=== PATIENT | male | born 1935 | race Hispanic/Latino ===

== ENCOUNTER 2017-05-23 10:24 | Inpatient (IN) | payer MEDICARE ==
[2017-05-23 10:56] LABS: Basophils # (Auto) 0.1 K/mm3 (0.0-0.1); Basophils % (Auto) 0.8 % (0.0-1.8); Eosinophils # (Auto) 0.2 K/mm3 (0.0-0.4); Eosinophils % (Auto) 2.2 % (0.0-4.3); Hematocrit 45.7 % (35.5-45.6); Lymphocytes # (Auto) 2.9 K/mm3 (1.2-5.4); Lymphocytes % (Auto) 30.3 % (13.4-35.0); Mean Corpuscular HGB Conc 33 % (32-34); Mean Corpuscular Hemoglobin 30 pg (28-32); Mean Corpuscular Volume 90 fl (84-94); Monocytes % (Auto) 10.4 % (0.0-7.3); Platelet Count 215 K/mm3 (140-440); Red Blood Count 5.06 M/mm3 (3.65-5.03); Red Cell Distribution Width 14.6 % (13.2-15.2)
[2017-05-23 11:03] LABS: INR 0.95 (0.87-1.13)
--- NOTE | 2017-05-23 11:10 | XRay Report ---
PORTABLE CHEST INDICATION: Possible sepsis. COMPARISON: 06/22/2011 FINDINGS: Portable, frontal chest radiograph demonstrates normal cardiomediastinal silhouette. Aortic knob calcifications. Lungs again hyperinflated, though grossly clear. Various bony degenerative changes again noted. CONCLUSION: No acute chest process with COPD again noted. Thank you for the opportunity to participate in this patient's care.
[2017-05-23 11:34] LABS: Albumin 3.7 g/dL (3.9-5)
[2017-05-23] MEDS ORDERED: LOVENOX SUB-Q ONE (13:43)
--- NOTE | 2017-05-23 13:45 | Emergency Department Report ---
ED Extremity Problem HPI - General Chief complaint: Fever Stated complaint: FEVER/CHILLS Source: patient, family, old records reviewed Mode of arrival: Ambulatory Limitations: No Limitations - History of Present Illness Initial comments: 82-year-old male with past medical history of previous venoplasty with stent secondary to bilateral lower extremity venous insufficiency/chronic DVT, hypertension, COPD, and arthritis presents to the hospital complaints of right lower leg pain 3 days. Positive swelling and redness and warmth noted. Positive chills without documented fever. Nonproductive cough reported without chest pain or shortness of breath. History of DVT in the past. Patient has not followed up with vascular and greater than 2 years. He does not currently take any antiplatelet or anticoagulant medication. Previous medical record reviewed in January 2015 patient had a venoplasty with stent placement for superficial femoral vein occlusion secondary to chronic DVT (preformed by Dr Mccain - Related Data Home Medications Medication Instructions Recorded Confirmed Last Taken Lisinopril/Hydrochlorothiazide 1 tab PO DAILY 01/27/15 05/23/17 05/23/17 [Zestoretic 20-12.5 mg] Metoprolol [Lopressor] 100 mg PO DAILY 01/27/15 05/23/17 05/23/17 Allergies Allergy/AdvReac Type Severity Reaction Status Date / Time No Known Allergies Allergy Verified 01/27/15 06:42 ED Review of Systems ROS: Stated complaint: FEVER/CHILLS Other details as noted in HPI Comment: All other systems reviewed and negative ED Past Medical Hx - Past Medical History Previous Medical History?: Yes Hx Hypertension: Yes Hx Deep Vein Thrombosis: Yes Hx Arthritis: Yes (general) Hx COPD: Yes - Surgical History Past Surgical History?: Yes Hx Cholecystectomy: Yes Additional Surgical History: LEFT KNEE REPLACEMENT. BACK SURGERY. blocked colon - Social History Smoking Status: Current Every Day Smoker Substance Use Type: None - Medications Home Medications: Home Medications Medication Instructions Recorded Confirmed Last Taken Type Lisinopril/Hydrochlorothiazide 1 tab PO DAILY 01/27/15 05/23/17 05/23/17 History [Zestoretic 20-12.5 mg] Metoprolol [Lopressor] 100 mg PO DAILY 01/27/15 05/23/17 05/23/17 History ED Physical Exam - General Limitations: No Limitations - Other Other exam information: General: No limitations, patient is alert in no acute distress Head exam: Atraumatic, normocephalic Eyes exam: Normal appearance ENT: Moist mucous membrane, normal oropharynx Neck exam: Normal inspection, full range of motion, no meningismus nontender Respiratory exam: Clear to auscultation bilateral, no wheezes, rales, crackles Cardiovascular: Normal rate and rhythm, normal heart sounds Abdomen: Soft, nondistended, and nontender, with normal bowel sounds, no rebound, or guarding Extremity: Full range of motion, right lower leg swelling, edema, mild redness and warmth. Unable to palpate or Doppler either DP pulse. Able to Doppler popiteal and PT pulses Back: Normal Inspection, full range of motion, no tenderness Neurologic: Alert, oriented x3, cranial nerves intact, no motor or sensory deficit Psychiatric: normal affect, normal mood Skin: Warm, dry, intact ED Course Vital Signs 05/23/17 10:30 Temperature 97.6 F Pulse Rate 61 Respiratory 16 Rate Blood Pressure 123/82 O2 Sat by Pulse 98 Oximetry - Reevaluation(s) Reevaluation #1: 05/23/17 15:42 pt declined pain meds during ed stay - Consultations Consultation #1: 05/23/17 13:42 Case discussed with Moe with a vascular. Will consult ED Medical Decision Making - Lab Data Result diagrams: 05/23/17 10:39 05/23/17 10:39 Lab Results 05/23/17 05/23/17 05/23/17 Range/Units 10:39 10:39 10:39 WBC 9.7 (4.5-11.0) K/mm3 RBC 5.06 H (3.65-5.03) M/mm3 Hgb 15.0 (11.8-15.2) gm/dl Hct 45.7 H (35.5-45.6) % MCV 90 (84-94) fl MCH 30 (28-32) pg MCHC 33 (32-34) % RDW 14.6 (13.2-15.2) % Plt Count 215 (140-440) K/mm3 Lymph % (Auto) 30.3 (13.4-35.0) % [place] % (Auto) 10.4 H (0.0-7.3) % Eos % (Auto) 2.2 (0.0-4.3) % Baso % (Auto) 0.8 (0.0-1.8) % Lymph # 2.9 (1.2-5.4) K/mm3 [place] # 1.0 H (0.0-0.8) K/mm3 Eos # 0.2 (0.0-0.4) K/mm3 Baso # 0.1 (0.0-0.1) K/mm3 Seg Neutrophils % 56.3 (40.0-70.0) % Seg Neutrophils # 5.5 (1.8-7.7) K/mm3 PT 13.1 (12.2-14.9) Sec. INR 0.95 (0.87-1.13) APTT (24.2-36.6) Sec. VBG pH (7.320-7.420) Sodium 138 (137-145) mmol/L Potassium 4.4 (3.6-5.0) mmol/L Chloride 100.0 (98-107) mmol/L Carbon Dioxide 27 (22-30) mmol/L Anion Gap 15 mmol/L BUN 32 H (9-20) mg/dL Creatinine 1.2 (0.8-1.5) mg/dL Estimated GFR 58 ml/min BUN/Creatinine Ratio 27 % Glucose 106 H (75-100) mg/dL Lactic Acid (0.7-2.0) mmol/L Calcium 9.0 (8.4-10.2) mg/dL Total Bilirubin 0.60 (0.1-1.2) mg/dL AST 17 (5-40) units/L ALT 10 (7-56) units/L Alkaline Phosphatase 92 (35-129) units/L Total Protein 7.1 (6.3-8.2) g/dL Albumin 3.7 L (3.9-5) g/dL Albumin/Globulin Ratio 1.1 % Urine Color (Yellow) Urine Turbidity (Clear) Urine pH (5.0-7.0) Ur Specific [place] (1.003-1.030) Urine Protein (Negative) mg/dL Urine Glucose (UA) (Negative) mg/dL Urine Ketones (Negative) mg/dL Urine Blood (Negative) Urine Nitrite (Negative) Urine Bilirubin (Negative) Urine Urobilinogen (<2.0) mg/dL Ur Leukocyte Esterase (Negative) Urine WBC (Auto) (0.0-6.0) /HPF Urine RBC (Auto) (0.0-6.0) /HPF Urine Mucus /HPF 05/23/17 05/23/17 05/23/17 Range/Units 10:39 10:39 13:12 WBC (4.5-11.0) K/mm3 RBC (3.65-5.03) M/mm3 Hgb (11.8-15.2) gm/dl Hct (35.5-45.6) % MCV (84-94) fl MCH (28-32) pg MCHC (32-34) % RDW (13.2-15.2) % Plt Count (140-440) K/mm3 Lymph % (Auto) (13.4-35.0) % [place] % (Auto) (0.0-7.3) % Eos % (Auto) (0.0-4.3) % Baso % (Auto) (0.0-1.8) % Lymph # (1.2-5.4) K/mm3 [place] # (0.0-0.8) K/mm3 Eos # (0.0-0.4) K/mm3 Baso # (0.0-0.1) K/mm3 Seg Neutrophils % (40.0-70.0) % Seg Neutrophils # (1.8-7.7) K/mm3 PT (12.2-14.9) Sec. INR (0.87-1.13) APTT (24.2-36.6) Sec. VBG pH 7.320 (7.320-7.420) Sodium (137-145) mmol/L Potassium (3.6-5.0) mmol/L Chloride (98-107) mmol/L Carbon Dioxide (22-30) mmol/L Anion Gap mmol/L BUN (9-20) mg/dL Creatinine (0.8-1.5) mg/dL Estimated GFR ml/min BUN/Creatinine Ratio % Glucose (75-100) mg/dL Lactic Acid 1.50 1.30 (0.7-2.0) mmol/L Calcium (8.4-10.2) mg/dL Total Bilirubin (0.1-1.2) mg/dL AST (5-40) units/L ALT (7-56) units/L Alkaline Phosphatase (35-129) units/L Total Protein (6.3-8.2) g/dL Albumin (3.9-5) g/dL Albumin/Globulin Ratio % Urine Color (Yellow) Urine Turbidity (Clear) Urine pH (5.0-7.0) Ur Specific [place] (1.003-1.030) Urine Protein (Negative) mg/dL Urine Glucose (UA) (Negative) mg/dL Urine Ketones (Negative) mg/dL Urine Blood (Negative) Urine Nitrite (Negative) Urine Bilirubin (Negative) Urine Urobilinogen (<2.0) mg/dL Ur Leukocyte Esterase (Negative) Urine WBC (Auto) (0.0-6.0) /HPF Urine RBC (Auto) (0.0-6.0) /HPF Urine Mucus /HPF 05/23/17 05/23/17 Range/Units 13:49 14:00 WBC (4.5-11.0) K/mm3 RBC (3.65-5.03) M/mm3 Hgb (11.8-15.2) gm/dl Hct (35.5-45.6) % MCV (84-94) fl MCH (28-32) pg MCHC (32-34) % RDW (13.2-15.2) % Plt Count (140-440) K/mm3 Lymph % (Auto) (13.4-35.0) % [place] % (Auto) (0.0-7.3) % Eos % (Auto) (0.0-4.3) % Baso % (Auto) (0.0-1.8) % Lymph # (1.2-5.4) K/mm3 [place] # (0.0-0.8) K/mm3 Eos # (0.0-0.4) K/mm3 Baso # (0.0-0.1) K/mm3 Seg Neutrophils % (40.0-70.0) % Seg Neutrophils # (1.8-7.7) K/mm3 PT 13.7 (12.2-14.9) Sec. INR 1.00 (0.87-1.13) APTT 27.6 (24.2-36.6) Sec. VBG pH (7.320-7.420) Sodium (137-145) mmol/L Potassium (3.6-5.0) mmol/L Chloride (98-107) mmol/L Carbon Dioxide (22-30) mmol/L Anion Gap mmol/L BUN (9-20) mg/dL Creatinine (0.8-1.5) mg/dL Estimated GFR ml/min BUN/Creatinine Ratio % Glucose (75-100) mg/dL Lactic Acid (0.7-2.0) mmol/L Calcium (8.4-10.2) mg/dL Total Bilirubin (0.1-1.2) mg/dL AST (5-40) units/L ALT (7-56) units/L Alkaline Phosphatase (35-129) units/L Total Protein (6.3-8.2) g/dL Albumin (3.9-5) g/dL Albumin/Globulin Ratio % Urine Color Yellow (Yellow) Urine Turbidity Clear (Clear) Urine pH 5.0 (5.0-7.0) Ur Specific [place] 1.019 (1.003-1.030) Urine Protein <15 mg/dl (Negative) mg/dL Urine Glucose (UA) Neg (Negative) mg/dL Urine Ketones Neg (Negative) mg/dL Urine Blood Neg (Negative) Urine Nitrite Neg (Negative) Urine Bilirubin Neg (Negative) Urine Urobilinogen < 2.0 (<2.0) mg/dL Ur Leukocyte Esterase Neg (Negative) Urine WBC (Auto) < 1.0 (0.0-6.0) /HPF Urine RBC (Auto) < 1.0 (0.0-6.0) /HPF Urine Mucus Few /HPF - Radiology Data Radiology results: report reviewed VASCULAR LAB.PRELIMINARY REPORT. RLE VENOUS DUPLEX DONE. EVIDENCE OF ACUTE DVT IN THE RT.POPLITEAL VEIN EXTENDING ALL THE WAY DOWN TO THE RT.DS PTV. SVT NOTED IN THE RT.GSV FROM PX TO DS CALF. - Medical Decision Making Acute DVT/right leg pain and swelling Unable to palpate or Doppler DP pulses Positive significant acute DVT to the right lower extremity Lovenox initiated Vascular consulted - Differential Diagnosis DVT, cellulitis, PAD, venous insufficiency Critical Care Time: No Critical care attestation.: If time is entered above; I have spent that time in minutes in the direct care of this critically ill patient, excluding procedure time. ED Disposition Clinical Impression: Acute deep vein thrombosis (DVT) of right lower extremity, HTN (hypertension), Venous insufficiency of both lower extremities Disposition: DC-09 OP ADMIT IP TO THIS HOSP Is pt being admited?: Yes Condition: Stable Time of Disposition: 14:18 (Dr valenzuela/hosp)
[2017-05-23 14:12] LABS: Partial Thromboplastin Time 27.6 Sec. (24.2-36.6)
[2017-05-23 15:14] LABS: Bilirubin,Urine NEG (Negative); Blood,Urine NEG (Negative); Color,Urine Yellow (Yellow); Mucus,Urine FEW /HPF; Protein,Urine <15 mg/dL mg/dL (Negative); Urobilinogen,Urine < 2.0 mg/dL (<2.0); WBC,Urine < 1.0 /HPF (0.0-6.0)
[2017-05-23 15:16] LABS: RBC,Urine < 1.0 /HPF (0.0-6.0)
--- NOTE | 2017-05-23 16:50 | Consultation ---
History of Present Illness - Reason for Consult Consult date: 05/23/17 Requesting physician: JOHN HOPKINS - History of Present Illness This pt is an 82 yo WM that has been admitted via the [facility] ER due to an acute DVT to the right pop vein extending into the calf veins (based upon a prelimbinary venous duplex). He reports new onset of pain and swelling of the right lower ext beginning 3-4 days ago. This did not improve and therefore he was taken to the ER for further work up. He also reports episodes of fever and chills starting last week (Friday) and again last night. The pt is known to our service s/p previous bilateral venogram, angioplasty/ SFV stent placement in Jan. He has failed to follow since early 2015. He stayed on oral anticoagulation for ~6months and stopped without medical advise. This was due to cost. Past History Past Medical History: arthritis, COPD, DVT (multiple thrombotic events), hypertension, other (Diverticulitis) Past Surgical History: cholecystectomy, Other (knee and back surgeries, the above stated SFV angioplasty with self expanding stent placement) Social history: , lives with family, smoking. denies: alcohol abuse Family history: cancer, diabetes Medications and Allergies Allergies Allergy/AdvReac Type Severity Reaction Status Date / Time No Known Allergies Allergy Verified 01/27/15 06:42 Home Medications Medication Instructions Recorded Confirmed Last Taken Type Lisinopril/Hydrochlorothiazide 1 tab PO DAILY 01/27/15 05/23/17 05/23/17 History [Zestoretic 20-12.5 mg] Metoprolol [Lopressor] 100 mg PO DAILY 01/27/15 05/23/17 05/23/17 History Review of Systems All systems: negative Exam - Constitutional Vitals: Temp Pulse Resp BP Pulse Ox 97.6 F 67 10 L 148/67 99 05/23/17 10:30 05/23/17 16:16 05/23/17 16:16 05/23/17 16:16 05/23/17 16:16 General appearance: Present: no acute distress - EENT Eyes: Present: EOM intact ENT: hearing intact - Neck Neck: Present: supple - Respiratory Respiratory effort: normal - Extremities Extremities: no ischemia, normal temperature Extremity abnormal: edema (right lower ext swelling with mild erythema and a palp cord along the GSV. This is quite tender to palpation.) - Psychiatric Psychiatric: appropriate mood/affect, intact judgment & insight, cooperative - Neurologic Neurologic: no focal deficits Results - Labs CBC & Chem 7: 05/23/17 10:39 05/23/17 10:39 Labs: Abnormal lab results 05/23/17 05/23/17 Range/Units 10:39 10:39 RBC 5.06 H (3.65-5.03) M/mm3 Hct 45.7 H (35.5-45.6) % [place] % (Auto) 10.4 H (0.0-7.3) % [place] # 1.0 H (0.0-0.8) K/mm3 BUN 32 H (9-20) mg/dL Glucose 106 H (75-100) mg/dL Albumin 3.7 L (3.9-5) g/dL Assessment and Plan This pt has a h/o previous bilateral lower ext DVT with venous insufficiency with venous angioplasty and stent placement. He has failed to follow up with our office since early 2015. He quit taking his oral anticoagulation without medical advise after 6 months. He presents now with new complaints of pain and swelling. U/s shows GSV thrombus which is likely responsible for his pain. It's difficult to tell if the chronicity of the deep vein thrombus, suspect this is chronic from history and review of u/s images. Recommend resumption of oral anticoagulation (Eliquis 5mg po bid). He should be evaluated for the Eliquis assistance program to potentially help with the cost. We also discussed the importance of lower ext elevation, compression, and warm (not hot) compresses (for discomfort). Fvr/Chills w/u in progress. Pt will f/u in our office next week. - Patient Problems (1) Recurrent deep vein thrombosis (DVT) Current Visit: Yes Status: Acute (2) Venous insufficiency of both lower extremities Current Visit: Yes Status: Chronic (3) Medical non-compliance Current Visit: Yes Status: Acute (4) Fever chills Current Visit: Yes Status: Acute
--- NOTE | 2017-05-23 19:21 | History and Physical Report ---
History of Present Illness Date of examination: 05/23/17 Date of admission: 05/23/17 14:52 Chief complaint: See dictated H/p in reports History of present illness: See dictated H/p in reports Past History Past Medical History: arthritis, COPD, DVT (multiple thrombotic events), hypertension, other (Diverticulitis) Past Surgical History: cholecystectomy, Other (knee and back surgeries, the above stated SFV angioplasty with self expanding stent placement) Social history: , lives with family, smoking. denies: alcohol abuse Family history: cancer, diabetes Medications and Allergies Allergies Allergy/AdvReac Type Severity Reaction Status Date / Time No Known Allergies Allergy Verified 01/27/15 06:42 Home Medications Medication Instructions Recorded Confirmed Last Taken Type Lisinopril/Hydrochlorothiazide 1 tab PO DAILY 01/27/15 05/23/17 05/23/17 History [Zestoretic 20-12.5 mg] Metoprolol [Lopressor] 100 mg PO DAILY 01/27/15 05/23/17 05/23/17 History Oxycodone-Acetaminophn 5-325/5 7.5 mg PO Q8H 05/23/17 05/23/17 05/23/17 08:30 History Active Meds: Active Medications Apixaban (Eliquis) 5 mg PO Q12HR LYN; Protocol Exam - Constitutional Vitals: Temp Pulse Resp BP Pulse Ox 97.8 F 65 20 143/88 97 05/23/17 18:18 05/23/17 18:18 05/23/17 18:18 05/23/17 18:18 05/23/17 18:18 Results - Labs CBC & Chem 7: 05/24/17 05:39 05/24/17 05:39 Labs: Laboratory Last Values WBC 9.7 K/mm3 (4.5-11.0) 05/23/17 10:39 RBC 5.06 M/mm3 (3.65-5.03) H 05/23/17 10:39 Hgb 15.0 gm/dl (11.8-15.2) 05/23/17 10:39 Hct 45.7 % (35.5-45.6) H 05/23/17 10:39 MCV 90 fl (84-94) 05/23/17 10:39 MCH 30 pg (28-32) 05/23/17 10:39 MCHC 33 % (32-34) 05/23/17 10:39 RDW 14.6 % (13.2-15.2) 05/23/17 10:39 Plt Count 215 K/mm3 (140-440) 05/23/17 10:39 Lymph % (Auto) 30.3 % (13.4-35.0) 05/23/17 10:39 [place] % (Auto) 10.4 % (0.0-7.3) H 05/23/17 10:39 Eos % (Auto) 2.2 % (0.0-4.3) 05/23/17 10:39 Baso % (Auto) 0.8 % (0.0-1.8) 05/23/17 10:39 Lymph # 2.9 K/mm3 (1.2-5.4) 05/23/17 10:39 [place] # 1.0 K/mm3 (0.0-0.8) H 05/23/17 10:39 Eos # 0.2 K/mm3 (0.0-0.4) 05/23/17 10:39 Baso # 0.1 K/mm3 (0.0-0.1) 05/23/17 10:39 Seg Neutrophils % 56.3 % (40.0-70.0) 05/23/17 10:39 Seg Neutrophils # 5.5 K/mm3 (1.8-7.7) 05/23/17 10:39 PT 13.7 Sec. (12.2-14.9) 05/23/17 13:49 INR 1.00 (0.87-1.13) 05/23/17 13:49 APTT 27.6 Sec. (24.2-36.6) 05/23/17 13:49 VBG pH 7.320 (7.320-7.420) 05/23/17 10:39 Sodium 138 mmol/L (137-145) 05/23/17 10:39 Potassium 4.4 mmol/L (3.6-5.0) 05/23/17 10:39 Chloride 100.0 mmol/L (98-107) 05/23/17 10:39 Carbon Dioxide 27 mmol/L (22-30) 05/23/17 10:39 Anion Gap 15 mmol/L 05/23/17 10:39 BUN 32 mg/dL (9-20) H 05/23/17 10:39 Creatinine 1.2 mg/dL (0.8-1.5) 05/23/17 10:39 Estimated GFR 58 ml/min 05/23/17 10:39 BUN/Creatinine Ratio 27 % 05/23/17 10:39 Glucose 106 mg/dL (75-100) H 05/23/17 10:39 Lactic Acid 1.30 mmol/L (0.7-2.0) 05/23/17 13:12 Calcium 9.0 mg/dL (8.4-10.2) 05/23/17 10:39 Total Bilirubin 0.60 mg/dL (0.1-1.2) 05/23/17 10:39 AST 17 units/L (5-40) 05/23/17 10:39 ALT 10 units/L (7-56) 05/23/17 10:39 Alkaline Phosphatase 92 units/L (35-129) 05/23/17 10:39 Total Protein 7.1 g/dL (6.3-8.2) 05/23/17 10:39 Albumin 3.7 g/dL (3.9-5) L 05/23/17 10:39 Albumin/Globulin Ratio 1.1 % 05/23/17 10:39 Urine Color Yellow (Yellow) 05/23/17 14:00 Urine Turbidity Clear (Clear) 05/23/17 14:00 Urine pH 5.0 (5.0-7.0) 05/23/17 14:00 Ur Specific [place] 1.019 (1.003-1.030) 05/23/17 14:00 Urine Protein <15 mg/dl mg/dL (Negative) 05/23/17 14:00 Urine Glucose (UA) Neg mg/dL (Negative) 05/23/17 14:00 Urine Ketones Neg mg/dL (Negative) 05/23/17 14:00 Urine Blood Neg (Negative) 05/23/17 14:00 Urine Nitrite Neg (Negative) 05/23/17 14:00 Urine Bilirubin Neg (Negative) 05/23/17 14:00 Urine Urobilinogen < 2.0 mg/dL (<2.0) 05/23/17 14:00 Ur Leukocyte Esterase Neg (Negative) 05/23/17 14:00 Urine WBC (Auto) < 1.0 /HPF (0.0-6.0) 05/23/17 14:00 Urine RBC (Auto) < 1.0 /HPF (0.0-6.0) 05/23/17 14:00 Urine Mucus Few /HPF 05/23/17 14:00
[2017-05-23] MEDS ORDERED: SODIUM CHLORIDE FLUSH SYRINGE 10 ML IV PRN (19:23)
[2017-05-23] MEDS ORDERED: TYLENOL PO PRN (19:23)
[2017-05-23] MEDS ORDERED: ZOFRAN IV PRN (19:23)
[2017-05-23] MEDS ORDERED: DILAUDID IV PRN (19:24)
[2017-05-23] MEDS ORDERED: AMBIEN PO PRN (19:24)
[2017-05-23] MEDS ORDERED: MORPHINE IV PRN (19:24)
[2017-05-23] MEDS ORDERED: PERCOCET 5/325 PO PRN (19:26)
[2017-05-23] MEDS ORDERED: ACETAMINOPHEN PO SCH (19:30)
[2017-05-23] MEDS ORDERED: NON-FORMULARY (Lisinopril/Hydrochlorothiazide [Zestoretic 20-12.5 Mg] 1 TAB) PO SCH (19:30)
[2017-05-23] MEDS ORDERED: OXYCODONE PO SCH (19:30)
[2017-05-23] MEDS ORDERED: NACL 0.9% 1000 ML 1,000 ML IV SCH (20:00)
[2017-05-23] MEDS ORDERED: LOVENOX SUB-Q SCH ×2 (20:00→22:00)
[2017-05-23] MEDS: SODIUM CHLORIDE FLUSH SYRINGE 10 ML IV SCH (22:00)
[2017-05-24] MEDS: PEPCID PO SCH ×3 (00:39→23:25)
[2017-05-24 06:01] LABS: Basophils # (Auto) 0.1 K/mm3 (0.0-0.1); Basophils % (Auto) 0.6 % (0.0-1.8); Eosinophils # (Auto) 0.3 K/mm3 (0.0-0.4); Eosinophils % (Auto) 2.5 % (0.0-4.3); Hematocrit 43.6 % (35.5-45.6); Hemoglobin 14.3 gm/dl (11.8-15.2); Lymphocytes # (Auto) 4.3 K/mm3 (1.2-5.4); Lymphocytes % (Auto) 41.8 % (13.4-35.0); Mean Corpuscular HGB Conc 33 % (32-34); Mean Corpuscular Hemoglobin 30 pg (28-32); Mean Corpuscular Volume 91 fl (84-94); Monocytes % (Auto) 9.7 % (0.0-7.3); Platelet Count 206 K/mm3 (140-440); Red Cell Distribution Width 14.5 % (13.2-15.2)
[2017-05-24 06:31] LABS: Alanine Aminotransferase 11 units/L (7-56); Albumin 3.3 g/dL (3.9-5); BUN/Creatinine Ratio 28; Blood Urea Nitrogen 25 mg/dL (9-20); Calcium 8.8 mg/dL (8.4-10.2); Hemolysis Index 11
--- NOTE | 2017-05-24 08:42 | History and Physical Report ---
CHIEF COMPLAINT: Right lower extremity swelling. HISTORY OF PRESENT ILLNESS: An 82-year-old male with a history of recurrent DVT comes in for right lower extremity swelling. New onset of pain to the right lower extremity of 3 to 4 days, which did not improve. Venous duplex scan shows right popliteal vein thrombus extending into the calf veins. The patient had a bilateral venogram and angioplasty of ____, superficial femoral vein stent placement in 01/2015 and did not stay on oral anticoagulation for 6 months and stopped without medical advice. No shortness of breath. PAST MEDICAL HISTORY: As mentioned, significant for COPD, DVT, multiple thrombotic events, hypertension, diverticulitis, and arthritis. PAST SURGICAL HISTORY: Cholecystectomy, knee and back surgeries. SFV angioplasty with self-expanding stent placement. SOCIAL HISTORY: , lives with family. Smokes over a pack a day. No alcohol abuse. FAMILY HISTORY: Cancer and diabetes. CURRENT MEDICATIONS: Lisinopril and metoprolol. REVIEW OF SYSTEMS: Other than the right lower extremity pain, review of systems essentially negative. A 14-point review of systems done. PHYSICAL EXAMINATION: GENERAL: Elderly male, lying in bed, comfortable. VITAL SIGNS: Blood pressure is 123/84, temperature is 97.9, pulse is 67, and respirations are 14. HEENT: Unremarkable. Pupils are equal and reactive. NECK: Supple, no lymphadenopathy, no thyromegaly. LUNGS: Clear to auscultation and percussion. Good air entry. CARDIOVASCULAR: S1, S2 heard. No gallop, no murmur, no rub. Apical impulse in left fifth intercostal space and midclavicular line. ABDOMEN: Soft and benign. No hepatosplenomegaly. No guarding, no rigidity. Hernial orifices are normal. EXTREMITIES: Right lower extremity swollen, tender on the calf region. Homans sign present. CENTRAL NERVOUS SYSTEM: Alert and oriented x 4, nonfocal exam. LABORATORY DATA: CBC: White count is 9700, hemoglobin is 15.0, hematocrit is 45.7. Sodium is 138, potassium is 4.4, bicarbonate is 27, BUN and creatinine are 32 and 1.2, and glucose is 106. Albumin is 3.7, slightly low. Urine, no white cells. DIAGNOSTIC DATA: Duplex scan, right popliteal vein deep vein thrombosis present. ASSESSMENT AND PLAN: 1. Acute deep venous thrombosis. The patient is initiated on Lovenox. Vascular Surgery consult requested. Vascular surgery initiated Eliquis 5 mg twice a day. Vascular surgery to follow up on the patient. Venous insufficiency of both lower extremities as per Vascular Surgery. 2. Hypertension. Continue antihypertensives. 3. Nicotine dependence, Nicoderm patch initiated. 4. Deep venous thrombosis prophylaxis. The patient is already on Lovenox for the DVT. In summary, the patient to be continued on Lovenox, started on Eliquis and discharge planning depending on the Vascular Surgery input. JOB# [id number] THOMAS/GUS
[2017-05-24] MEDS: HABITROL TD SCH (11:30)
[2017-05-24] MEDS: SODIUM CHLORIDE FLUSH SYRINGE 10 ML IV SCH ×2 (11:30→23:32)
[2017-05-24] MEDS: ELIQUIS PO SCH ×2 (11:31→23:26)
[2017-05-24] MEDS: LOPRESSOR PO SCH (11:31)
[2017-05-24] MEDS: ZESTRIL PO SCH (11:31)
[2017-05-24] MEDS: HCTZ PO SCH (11:31)
--- NOTE | 2017-05-24 14:40 | Progress Note ---
Assessment and Plan Assessment and plan: --Acute right lower extremity DVT; On Lovenox, changed to Eliquis, Vascular evaluated the patient --Hypertension; moderate control, continue current antihypertensives And when necessary medications --mild protein calorie malnutrition/nutrition supplements and supportive care --Full CODE STATUS Closely monitor the patient and adjust management as needed Possible discharge home on Eliquis tomorrow if stable Plan of care reviewed with the patient his and the nurse History Interval history: Patient seen and examined medical records reviewed Admitted with right lower extremity DVT, on Lovenox Evaluation by vascular. CT chest negative for PE Patient feels slightly better Denies chest pain or shortness of breath Alert awake oriented 3 not in acute distress Vital signs reviewed Hospitalist Physical - Constitutional Vitals: Temp Pulse Resp BP Pulse Ox 98.5 F 67 20 137/72 98 05/24/17 08:03 05/24/17 11:31 05/24/17 08:03 05/24/17 11:31 05/24/17 08:03 General appearance: Present: no acute distress, well-nourished - EENT Eyes: Present: PERRL, EOM intact - Neck Neck: Present: supple, normal ROM - Respiratory Respiratory effort: normal Respiratory: bilateral: diminished, negative: rales, rhonchi, wheezing - Cardiovascular Rhythm: regular Heart Sounds: Present: S1 & S2 - Extremities Extremities: no ischemia, No edema - Abdominal General gastrointestinal: soft, non-tender, non-distended, normal bowel sounds - Integumentary Integumentary: Present: clear, warm - Psychiatric Psychiatric: appropriate mood/affect, cooperative - Neurologic Neurologic: CNII-XII intact, moves all extremities Results - Labs CBC & Chem 7: 05/24/17 05:39 05/24/17 05:39 Labs: Laboratory Last Values WBC 10.2 K/mm3 (4.5-11.0) 05/24/17 05:39 RBC 4.80 M/mm3 (3.65-5.03) 05/24/17 05:39 Hgb 14.3 gm/dl (11.8-15.2) 05/24/17 05:39 Hct 43.6 % (35.5-45.6) 05/24/17 05:39 MCV 91 fl (84-94) 05/24/17 05:39 MCH 30 pg (28-32) 05/24/17 05:39 MCHC 33 % (32-34) 05/24/17 05:39 RDW 14.5 % (13.2-15.2) 05/24/17 05:39 Plt Count 206 K/mm3 (140-440) 05/24/17 05:39 Lymph % (Auto) 41.8 % (13.4-35.0) H 05/24/17 05:39 Kern % (Auto) 9.7 % (0.0-7.3) H 05/24/17 05:39 Eos % (Auto) 2.5 % (0.0-4.3) 05/24/17 05:39 Baso % (Auto) 0.6 % (0.0-1.8) 05/24/17 05:39 Lymph # 4.3 K/mm3 (1.2-5.4) 05/24/17 05:39 Kern # 1.0 K/mm3 (0.0-0.8) H 05/24/17 05:39 Eos # 0.3 K/mm3 (0.0-0.4) 05/24/17 05:39 Baso # 0.1 K/mm3 (0.0-0.1) 05/24/17 05:39 Seg Neutrophils % 45.4 % (40.0-70.0) 05/24/17 05:39 Seg Neutrophils # 4.6 K/mm3 (1.8-7.7) 05/24/17 05:39 PT 13.7 Sec. (12.2-14.9) 05/23/17 13:49 INR 1.00 (0.87-1.13) 05/23/17 13:49 APTT 27.6 Sec. (24.2-36.6) 05/23/17 13:49 VBG pH 7.320 (7.320-7.420) 05/23/17 10:39 Sodium 139 mmol/L (137-145) 05/24/17 05:39 Potassium 4.6 mmol/L (3.6-5.0) 05/24/17 05:39 Chloride 99.9 mmol/L (98-107) 05/24/17 05:39 Carbon Dioxide 27 mmol/L (22-30) 05/24/17 05:39 Anion Gap 17 mmol/L 05/24/17 05:39 BUN 25 mg/dL (9-20) H 05/24/17 05:39 Creatinine 0.9 mg/dL (0.8-1.5) 05/24/17 05:39 Estimated GFR > 60 ml/min 05/24/17 05:39 BUN/Creatinine Ratio 28 % 05/24/17 05:39 Glucose 89 mg/dL (75-100) 05/24/17 05:39 Hemoglobin A1c 5.8 % (4-6) 05/23/17 20:16 Lactic Acid 1.30 mmol/L (0.7-2.0) 05/23/17 13:12 Calcium 8.8 mg/dL (8.4-10.2) 05/24/17 05:39 Total Bilirubin 0.60 mg/dL (0.1-1.2) 05/24/17 05:39 AST 15 units/L (5-40) 05/24/17 05:39 ALT 11 units/L (7-56) 05/24/17 05:39 Alkaline Phosphatase 99 units/L (35-129) 05/24/17 05:39 Total Protein 6.4 g/dL (6.3-8.2) 05/24/17 05:39 Albumin 3.3 g/dL (3.9-5) L 05/24/17 05:39 Albumin/Globulin Ratio 1.1 % 05/24/17 05:39 Urine Color Yellow (Yellow) 05/23/17 14:00 Urine Turbidity Clear (Clear) 05/23/17 14:00 Urine pH 5.0 (5.0-7.0) 05/23/17 14:00 Ur Specific Mosby 1.019 (1.003-1.030) 05/23/17 14:00 Urine Protein <15 mg/dl mg/dL (Negative) 05/23/17 14:00 Urine Glucose (UA) Neg mg/dL (Negative) 05/23/17 14:00 Urine Ketones Neg mg/dL (Negative) 05/23/17 14:00 Urine Blood Neg (Negative) 05/23/17 14:00 Urine Nitrite Neg (Negative) 05/23/17 14:00 Urine Bilirubin Neg (Negative) 05/23/17 14:00 Urine Urobilinogen < 2.0 mg/dL (<2.0) 05/23/17 14:00 Ur Leukocyte Esterase Neg (Negative) 05/23/17 14:00 Urine WBC (Auto) < 1.0 /HPF (0.0-6.0) 05/23/17 14:00 Urine RBC (Auto) < 1.0 /HPF (0.0-6.0) 05/23/17 14:00 Urine Mucus Few /HPF 05/23/17 14:00
[2017-05-25] MEDS: SODIUM CHLORIDE FLUSH SYRINGE 10 ML IV SCH (10:16)
[2017-05-25] MEDS: HABITROL TD SCH (10:16)
[2017-05-25] MEDS: ELIQUIS PO SCH (10:18)
[2017-05-25] MEDS: PEPCID PO SCH (10:18)
[2017-05-25] MEDS: LOPRESSOR PO SCH (10:20)
[2017-05-25] MEDS: HCTZ PO SCH (10:20)
[2017-05-25] MEDS: ZESTRIL PO SCH (10:21)
[2017-05-25 10:22] VITALS: BP 93/51
--- NOTE | 2017-05-25 12:07 | Discharge Summary ---
Providers - Providers Date of Admission: 05/23/17 14:52 Date of discharge: 05/25/17 Attending physician: ERIK VACA 05/23/17 13:42 Consult to Physician [CONS] Urgent Comment: Consulting Provider: MARTHA BANERJEE Physician Instructions: Reason For Exam: right leg dvt 05/23/17 19:24 Consult to Physician [CONS] Routine Comment: Consulting Provider: JCARLOS GUPTA Physician Instructions: Reason For Exam: DVT Primary care physician: [employer] Hospitalization Reason for admission: right lower extremity swelling/acute DVT Condition: Stable Pertinent studies: Chest x-ray; no acute abnormality noted. COPD Lower extremity venous Doppler; evidence of acute DVT in the right popliteal vein Hospital course: Very pleasant 82-year-old male patient with significant past medical history of hypertension, recurrent DVTs, venous insufficiency both lower extremities and medical noncompliance was admitted through emergency room with acute right popliteal DVT extending to the cough pains on venous Doppler The patient was evaluated by vascular surgeon Dr. Parry, advised Eliquis 5 mg by mouth twice a day. Patient was symptomatically managed, Today's comfortably in bed no new complaints Vital signs are stable Ambulatory and tolerating oral nutrition Physical exam patch of discharge is unremarkable Patient counseled on importance of adhering to the treatment plan Verbalized understanding Discharge diagnosis; --Acute right lower extremity DVT; --Hypertension; moderate control, --mild protein calorie malnutrition - Disposition: DC-01 TO HOME OR SELFCARE Time spent for discharge: 31 min Core Measure Documentation - Palliative Care Palliative Care/ Comfort Measures: Not Applicable - Core Measures Any of the following diagnoses?: DVT/PE - VTE Discharge Requirements Deep Vein Thrombosis/Pulmonary Embolism Present on Admission: Yes Has pt received <5 days of overlap therapy or INR<2.0: Yes (patient on Eliquis) Anticoagulant overlap therapy prescribed at discharge: No Contraindication No Overlap Therapy order at DC: Not Indicated (recent on Eliquis) Exam - Constitutional Vitals: Temp Pulse Resp BP Pulse Ox 98.8 F 98 H 18 93/51 98 05/25/17 08:00 05/25/17 10:21 05/25/17 08:00 05/25/17 10:21 05/25/17 08:00 General appearance: Present: no acute distress, well-nourished - EENT Eyes: Present: PERRL, EOM intact - Neck Neck: Present: supple, normal ROM - Respiratory Respiratory effort: normal Respiratory: negative: rales, rhonchi, wheezing - Cardiovascular Rhythm: regular Heart Sounds: Present: S1 & S2 - Extremities Extremities: no ischemia, No edema - Abdominal General gastrointestinal: Present: soft, non-tender, non-distended, normal bowel sounds - Integumentary Integumentary: Present: clear, warm - Musculoskeletal Musculoskeletal: strength equal bilaterally - Psychiatric Psychiatric: appropriate mood/affect, cooperative - Neurologic Neurologic: CNII-XII intact, moves all extremities Plan Activity: advance as tolerated, fall precautions Diet: low salt Additional Instructions: If you notice any bleeding, stopped Eliquis and contact M.D. or go to emergency room Follow up with: PRIMARY CARE, [Primary Care Provider] - 3-5 Days MELINA PARRY MD [Staff Physician] - 7 Days DALILA TREVINO MD [Staff Physician] - 7 Days Prescriptions: Apixaban [Eliquis] 5 mg PO Q12HR #60 tablet Zolpidem [Ambien] 5 mg PO QHS PRN #7 tablet PRN Reason: Insomnia
== END 2017-05-25 13:20 | disposition home or self-care (01) | DRG 300 ==
LOC: ED 10:24 → 3A 14:52 → 2B-ACE 15:57
PROVIDERS: ADMIT Internal Medicine; ATTEND Internal Medicine
DX: I82.431 Acute embolism and thrombosis of right popliteal vein (principal); E44.1 Mild protein-calorie malnutrition; I87.2 Venous insufficiency (chronic) (peripheral); I82.411 Acute embolism and thrombosis of right femoral vein; I82.441 Acute embolism and thrombosis of right tibial vein; I10 Essential (primary) hypertension; J44.9 Chronic obstructive pulmonary disease, unspecified; M19.90 Unspecified osteoarthritis, unspecified site; Z68.27 Body mass index [BMI] 27.0-27.9, adult
CPT/HCPCS: 36415; 71045; 80053; 81001; 82140; 82805; 83036; 85025; 85610; 85730; 87040; 87086; 93005; 93010; 96372; J1650

== ENCOUNTER 2017-07-19 19:05 | Emergency (ER) | payer MEDICARE ==
[2017-07-19] MEDS ORDERED: NORCO 5/325 PO ONE (20:40)
--- NOTE | 2017-07-19 20:44 | Emergency Department Report ---
ED General Adult HPI - General Chief complaint: Extremity Problem,Nontraumatic Stated complaint: SWELLING TO LEGS Time Seen by Provider: 07/19/17 20:18 Source: patient Mode of arrival: Ambulatory Limitations: No Limitations - History of Present Illness Initial comments: hx of chronic dvt , restarted eliquis bid, smoker w/ hx of chronic ble venous insufficiency and possible pad, states increasing ble pain and swelling on eliquis for rle dvt since april, no sob no cp, tingling and numbness and pain to feet, ? color/temp changes per pt no motor change in the feet does have chronic tingling in the feet likely related to neuropathy having some persistent worsening pain to the feet but no black or necrotic changes no cold to the touch -: Gradual, hour(s), days(s) Radiation: non-radiation Severity scale (0 -10): 7 Quality: burning, stabbing, aching Associated Symptoms: denies: confusion, chest pain, cough, diaphoresis, fever/ chills - Related Data Home Medications Medication Instructions Recorded Confirmed Last Taken Lisinopril/Hydrochlorothiazide 1 tab PO DAILY 01/27/15 05/23/17 05/23/17 [Zestoretic 20-12.5 mg] Metoprolol [Lopressor TAB] 100 mg PO DAILY 01/27/15 05/23/17 05/23/17 Oxycodone-Acetaminophn 5-325/5 7.5 mg PO Q8H 05/23/17 05/23/17 05/23/17 08:30 Previous Rx's Medication Instructions Recorded Last Taken Type Apixaban [Eliquis] 5 mg PO Q12HR #60 tablet 05/25/17 Unknown Rx Zolpidem [Ambien] 5 mg PO QHS PRN #7 tablet 05/25/17 Unknown Rx Allergies Allergy/AdvReac Type Severity Reaction Status Date / Time No Known Allergies Allergy Verified 01/27/15 06:42 ED Review of Systems ROS: Stated complaint: SWELLING TO LEGS Other details as noted in HPI Comment: All other systems reviewed and negative Constitutional: denies: diaphoresis, fever, malaise Eyes: denies: eye discharge, vision change ENT: denies: dental pain, hearing loss, epistaxis Respiratory: denies: shortness of breath, SOB with exertion, SOB at rest, stridor Cardiovascular: denies: chest pain, palpitations, dyspnea on exertion, orthopnea , edema, syncope, paroxysmal nocturnal dyspnea Gastrointestinal: denies: abdominal pain, nausea, vomiting, diarrhea, constipation, hematemesis, melena, hematochezia Neurological: numbness, paresthesias. denies: headache, weakness, confusion, abnormal gait, vertigo ED Past Medical Hx - Past Medical History Hx Hypertension: Yes Hx Heart Attack/AMI: Yes Hx Deep Vein Thrombosis: Yes Hx Sickle Cell Disease: No Hx Arthritis: Yes Hx COPD: Yes - Surgical History Hx Cholecystectomy: Yes Additional Surgical History: LEFT KNEE REPLACEMENT. BACK SURGERY. blocked colon - Social History Smoking Status: Current Every Day Smoker Substance Use Type: None - Medications Home Medications: Home Medications Medication Instructions Recorded Confirmed Last Taken Type Lisinopril/Hydrochlorothiazide 1 tab PO DAILY 01/27/15 05/23/17 05/23/17 History [Zestoretic 20-12.5 mg] Metoprolol [Lopressor TAB] 100 mg PO DAILY 01/27/15 05/23/17 05/23/17 History Oxycodone-Acetaminophn 5-325/5 7.5 mg PO Q8H 05/23/17 05/23/17 05/23/17 08:30 History Apixaban [Eliquis] 5 mg PO Q12HR #60 tablet 05/25/17 Unknown Rx Zolpidem [Ambien] 5 mg PO QHS PRN #7 tablet 05/25/17 Unknown Rx ED Physical Exam - General Limitations: No Limitations General appearance: alert, in no apparent distress, anxious - Head Head exam: Present: atraumatic, normocephalic - Eye Eye exam: Present: PERRL, EOMI - ENT ENT exam: Present: normal exam, normal orophraynx - Neck Neck exam: Present: normal inspection. Absent: tenderness, meningismus - Respiratory Respiratory exam: Present: normal lung sounds bilaterally. Absent: respiratory distress, wheezes, rales, rhonchi, stridor, chest wall tenderness, accessory muscle use, decreased breath sounds, prolonged expiratory - Cardiovascular Cardiovascular Exam: Present: regular rate, normal rhythm - GI/Abdominal GI/Abdominal exam: Present: soft. Absent: distended, tenderness, guarding, rebound, rigid, mass, pulsatile mass - Extremities Exam Extremities exam: Present: normal capillary refill, other (slightly dusky but warm to the touch no overt signs of vascular insufficiency chronic pedal edema with stasis) - Back Exam Back exam: Present: normal inspection. Absent: CVA tenderness (L) - Neurological Exam Neurological exam: Present: alert, oriented X3, CN II-XII intact. Absent: motor sensory deficit - Skin Skin exam: Present: other (warm to the touch motor intact chronic decreased sensory with slightly delayed capillary refill poor distal pulses). Absent: vesicles, petechiae ED Course Vital Signs 07/19/17 07/19/17 07/19/17 19:21 20:18 21:45 Temperature 98.2 F 98.4 F Pulse Rate 68 62 79 Respiratory 20 15 13 Rate Blood Pressure 141/49 Blood Pressure 141/49 160/61 161/73 [Left] O2 Sat by Pulse 96 99 96 Oximetry 07/20/17 07/20/17 00:22 01:34 Temperature Pulse Rate 66 62 Respiratory 16 14 Rate Blood Pressure Blood Pressure 160/70 159/77 [Left] O2 Sat by Pulse 97 96 Oximetry ED Medical Decision Making - Lab Data Result diagrams: 07/19/17 20:30 07/19/17 20:30 - Radiology Data Radiology results: report reviewed - Medical Decision Making Radiologist does see chronic peripheral arterial disease with possible occlusion case was discussed with Dr. Romero vascular believes is likely chronic given the fact that there is no new heart signs of ischemia or vascular insufficiency does have chronic numbness in his feet the feet are not blue or cyanotic he does motor intact he will continue his elliquis and see vascular in the office patient was shocked and verbalized understanding to return immediately if new or alarming symptoms such as color or temperature changes of the worsening pain or other problems did deny chest pain and had normal saturation normal respiratory rate no evidence of DVT embolus at this time Critical care attestation.: If time is entered above; I have spent that time in minutes in the direct care of this critically ill patient, excluding procedure time. ED Disposition Clinical Impression: Peripheral arterial disease, Chronic venous stasis dermatitis of both lower extremities, Venous insufficiency of both lower extremities, Recurrent deep vein thrombosis (DVT) Disposition: TO HOME OR SELFCARE Is pt being admited?: No Condition: Stable Instructions: Peripheral Artery Disease (ED), How to Stop Smoking (ED) Additional Instructions: Return immediately if new alarming symptoms color temperature changes worse pain or other problems C her vascular doctor in in 2 days Referrals: PRIMARY MD IVAN [Primary Care Provider] - 3-5 Days MELINA EMERSON MD [Staff Physician] - 3-5 Days Time of Disposition: 02:07
--- NOTE | 2017-07-19 20:44 | XRay Report ---
FINAL REPORT EXAM: XR CHEST ROUTINE 2V HISTORY: Shortness of breath TECHNIQUE: PA and lateral views of the chest PRIORS: None. FINDINGS: Lines, tubes, and devices: N/A Lungs and pleura: Trachea is normal in position. Lungs are clear of infiltrate, pleural effusion, vascular congestion, or pneumothorax. Cardiomediastinal silhouette: Cardiac and mediastinal silhouettes are unremarkable. Calcification of the aortic arch is seen. 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 IMPRESSION: No acute cardiopulmonary process seen.
[2017-07-19 20:48] LABS: Basophils # (Auto) 0.1 K/mm3 (0.0-0.1); Basophils % (Auto) 0.9 % (0.0-1.8); Eosinophils # (Auto) 0.2 K/mm3 (0.0-0.4); Eosinophils % (Auto) 2.5 % (0.0-4.3); Hematocrit 39.4 % (35.5-45.6); Hemoglobin 13.5 gm/dl (11.8-15.2); Lymphocytes # (Auto) 2.1 K/mm3 (1.2-5.4); Lymphocytes % (Auto) 22.2 % (13.4-35.0); Mean Corpuscular HGB Conc 34 % (32-34); Mean Corpuscular Hemoglobin 30 pg (28-32); Mean Corpuscular Volume 89 fl (84-94); Monocytes # (Auto) 1.1 K/mm3 (0.0-0.8); Monocytes % (Auto) 11.2 % (0.0-7.3); Platelet Count 240 K/mm3 (140-440); Red Blood Count 4.42 M/mm3 (3.65-5.03); Red Cell Distribution Width 15.2 % (13.2-15.2)
[2017-07-19 21:03] LABS: BUN/Creatinine Ratio 30; Blood Urea Nitrogen 30 mg/dL (9-20); Calcium 8.8 mg/dL (8.4-10.2); Hemolysis Index 5
--- NOTE | 2017-07-19 23:16 | Cat Scan Report ---
FINAL REPORT EXAM: CT LOWER EXTREMITY LT W CON HISTORY: PAD TECHNIQUE: CT evaluations performed of the lower extremities following IV contrast administration for evaluation of the lower extremity arterial system. Coronal and sagittal imaging was also provided for interpretation. PRIORS: Disease as described above. FINDINGS: Vessels: Atherosclerotic vascular calcifications are present within the distal aorta, and femoral popliteal systems. There is no aneurysm of the distal aorta identified or high-grade stenosis. Right lower extremity: Moderate stenosis of the right superficial femoral artery at the level of the pubic symphysis, estimated 50 percent (axial image 73). Stent present in the right superficial femoral vein. Multifocal atherosclerotic vascular calcifications within the superficial femoral artery distal branch vessels. At the proximal popliteal artery there is moderate circumferential vessel narrowing. The tibioperoneal trunk is patent. There is diffuse subcutaneous stranding and edema throughout the lower extremity with additional fatty infiltration and atrophy of the leg musculature. Left lower extremity: Venous stent within the mid/distal thigh superficial femoral vein is present. Venous system is not opacified, evaluation for patency indeterminate. Irregular contour of the distal superficial femoral artery noting multilevel atherosclerotic vascular calcifications in vascular enlargement. There is an abrupt cutoff of the superficial femoral artery located 4 centimeters proximal to femoral component the level of the distal thigh (coronal image 94; axial image 206-213). The popliteal artery is enlarged and there is no internal contrast, noting limitation secondary to the adjacent prosthesis. Small amount of cysts superficial collaterals are noted and there is reconstitution of the tibioperoneal trunk at the level of the proximal tibiofibular joint (Axial images 260 5-275). Distal to this point, tibialis anterior vessel is visualized, tibialis posterior peroneal vessels are visualized. There is diffuse subcutaneous stranding and edema throughout the lower extremity with additional fatty infiltration and atrophy of the leg musculature. Extra arterial structures: Nonobstructive bowel gas pattern. Multiple colonic diverticula without adjacent inflammatory change. The bladder is filled with urine noting mild mass effect from the adjacent mildly enlarged prostate gland. Fat containing left greater than right inguinal hernias. Left total knee arthroplasty is noted which results in adjacent beam hardening artifact limiting evaluation. Lumbosacral degenerative changes and severe bilateral hip degenerative changes. IMPRESSION: multifocal atherosclerotic vascular disease as described above. There is occlusion of the distal left superficial femoral artery located approximately 4 centimeters proximal to the superficial margin femoral component knee prosthesis. There is reconstitution of the tibioperoneal trunk through collateral vasculature at the level of the proximal tibiofibular joint. Left total knee arthroplasty which results in limitation of the left popliteal artery. 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 Diverticulosis.
--- NOTE | 2017-07-19 23:19 | Cat Scan Report ---
FINAL REPORT EXAM: CT LOWER EXTREMITY RT W CON HISTORY: pad TECHNIQUE: CT evaluations performed of the lower extremities following IV contrast administration for evaluation of the lower extremity arterial system. Coronal and sagittal imaging was also provided for interpretation. PRIORS: None. FINDINGS: Vessels: Atherosclerotic vascular calcifications are present within the distal aorta, and femoral popliteal systems. There is no aneurysm of the distal aorta identified or high-grade stenosis. Right lower extremity: Moderate stenosis of the right superficial femoral artery at the level of the pubic symphysis, estimated 50 percent (axial image 73). Stent present in the right superficial femoral vein. Multifocal atherosclerotic vascular calcifications within the superficial femoral artery distal branch vessels. At the proximal popliteal artery there is moderate circumferential vessel narrowing. The tibioperoneal trunk is patent. There is diffuse subcutaneous stranding and edema throughout the lower extremity with additional fatty infiltration and atrophy of the leg musculature. Left lower extremity: Venous stent within the mid/distal thigh superficial femoral vein is present. Venous system is not opacified, evaluation for patency indeterminate. Irregular contour of the distal superficial femoral artery noting multilevel atherosclerotic vascular calcifications in vascular enlargement. There is an abrupt cutoff of the superficial femoral artery located 4 centimeters proximal to femoral component the level of the distal thigh (coronal image 94; axial image 206-213). The popliteal artery is enlarged and there is no internal contrast, noting limitation secondary to the adjacent prosthesis. Small amount of cysts superficial collaterals are noted and there is reconstitution of the tibioperoneal trunk at the level of the proximal tibiofibular joint (Axial images 260 5-275). Distal to this point, tibialis anterior vessel is visualized, tibialis posterior peroneal vessels are visualized. There is diffuse subcutaneous stranding and edema throughout the lower extremity with additional fatty infiltration and atrophy of the leg musculature. Extra arterial structures: Nonobstructive bowel gas pattern. Multiple colonic diverticula without adjacent inflammatory change. The bladder is filled with urine noting mild mass effect from the adjacent mildly enlarged prostate gland. Fat containing left greater than right inguinal hernias. Left total knee arthroplasty is noted which results in adjacent beam hardening artifact limiting evaluation. Lumbosacral degenerative changes and severe bilateral hip degenerative changes. IMPRESSION: Multifocal atherosclerotic vascular disease as described above. There is occlusion of the distal left superficial femoral artery located approximately 4 centimeters proximal to the superficial margin femoral component knee prosthesis. There is reconstitution of the tibioperoneal trunk through collateral vasculature at the level of the proximal tibiofibular joint. Left total knee arthroplasty which results in limitation of the left popliteal artery. 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 Diverticulosis.
[2017-07-20 01:35] VITALS: BP 159/77
== END 2017-07-20 02:26 | disposition home or self-care (01) ==
LOC: ED 19:05
DX: I73.9 Peripheral vascular disease, unspecified (principal); I82.403 Acute embolism and thrombosis of unspecified deep veins of lower extremity, bilateral; I87.2 Venous insufficiency (chronic) (peripheral); I10 Essential (primary) hypertension; I25.2 Old myocardial infarction; M19.90 Unspecified osteoarthritis, unspecified site; F17.200 Nicotine dependence, unspecified, uncomplicated; Z96.652 Presence of left artificial knee joint
CPT/HCPCS: 36415; 71046; 73701; 80048; 83880; 85025; 93005; 93010; 99285; Q9967